=== PATIENT | male | born 1995 | race Caucasian/White ===

== ENCOUNTER 2021-02-21 03:58 | Outpatient (CLI) | payer OTHER, SELFPAY ==
[2021-02-24 10:44] LABS: Lyme Ab w Rflx to Lyme Confirm Negative (Negative)
[2021-02-25 18:48] LABS: Anaplasma phagocytophilum Negative (Negative); B. miyamotoi PCR Negative (Negative); Babesia divergens/MO-1 Negative (Negative); Babesia duncani Negative (Negative); Babesia microti Negative (Negative); Ehrlichia chaffeensis Negative (Negative); Ehrlichia ewingii/canis Negative (Negative); Ehrlichia muris eauclairensis Negative (Negative)
== END 2021-02-21 03:59 | disposition home or self-care (01) ==
LOC: LBO 03:58
PROVIDERS: Visit Provider Physician Assistant
DX: R21 Rash and other nonspecific skin eruption (principal)
CPT/HCPCS: 36415; 87798; 86618

== ENCOUNTER 2021-09-29 09:10 | Outpatient (CLI) | payer OTHER, SELFPAY ==
--- NOTE | 2021-09-29 09:00 | RT.EKG_ITS ---
APPROVED REPORT Exam: Resting ECG Reason for Exam: Chest discomfort Patient Location: O HR:93 bpm ECG Measurements Heart Rate 93 AXIS NM 154 P 60 QRSd 100 QRS 106 QT 342 T 15 QTc 426 Conclusion Sinus rhythm...normal P axis, V-rate 60- 99 Normal Electrocardiogram
== END 2021-09-29 09:11 | disposition home or self-care (01) ==
LOC: DI.CM 09:11
PROVIDERS: Visit Provider Nurse Practitioner Family
DX: R07.89 Other chest pain (principal)
CPT/HCPCS: 93010

== ENCOUNTER 2021-09-29 16:39 | Outpatient (REF) | payer OTHER, SELFPAY ==
[2021-10-01 12:43] LABS: COVID-19 RT-PCR UVMMC Result Negative (Negative)
== END 2021-09-29 16:40 | disposition home or self-care (01) ==
LOC: LBN 16:39
PROVIDERS: Visit Provider Nurse Practitioner Family
DX: Z20.822 Contact with and (suspected) exposure to COVID-19 (principal)
CPT/HCPCS: U0003

== ENCOUNTER 2024-02-29 15:49 | Outpatient (CLI) | payer OTHER, SELFPAY ==
[2024-02-29 16:08] LABS: Abs Immature Grans 0.09 10^3/uL (0.0-0.06); Absolute Basophil Count 0.06 10^3/uL (0.0-0.2); Absolute Eosinophil Count 0.09 10^3/uL (0.0-0.7); Absolute Lymphocyte Count 1.85 10^3/uL (1.2-3.4); Absolute Monocyte Count 1.03 10^3/uL (0.1-0.8); Basophils % 0.5 %; Eosinophils % 0.8 %; HCT 50.2 % (40.0-50.0); HGB 17.5 g/dL (13.5-17.5); Immature Grans % 0.8 %; Lymphocytes % 15.7 %; MCH 29.9 pg (27.0-33.0); MCHC 34.9 % (32.0-36.0); MCV 86 fL (80-95); MPV 9.5 fL (8.0-11.0); Monocytes % 8.7 %; Neutrophils % 73.5 %; Platelet Count 306 10^3/uL (130-400); RBC 5.85 10^6/uL (4.36-5.78); RDW 12.4 % (11.8-14.1); RDW-SD 38.6 fL
[2024-02-29 16:10] LABS: Absolute Neutrophil Count 8.67 10^3/uL (1.2-6.7)
[2024-02-29 16:49] LABS: ALT 16 U/L (16-63); AST 17 U/L (15-37); Albumin 4.5 g/dL (3.4-5.0); Alkaline Phosphatase 83 U/L (46-116); Anion Gap 9.6 mmol/L (3-11); BUN 13 mg/dL (7-18); Bilirubin, Total 0.73 mg/dL (0.2-1.0); CO2 26.4 mmol/L (21.0-32.0); CREATININE 1.3 mg/dL (0.70-1.30); Calcium 9.4 mg/dL (8.5-10.1); Chloride 105 mmol/L (98-107); Estimated GFR 75.32 (mL/min/1.73m2); Glucose 85 mg/dL (74-106); Lipase 56 U/L (16-77); Potassium 4.4 mmol/L (3.5-5.1); Sodium 141 mmol/L (136-145); Total Protein 7.8 g/dL (6.4-8.2)
== END 2024-02-29 15:50 | disposition home or self-care (01) ==
LOC: LBO 15:54
PROVIDERS: Visit Provider Physician Assistant
DX: R10.11 Right upper quadrant pain (principal); K76.0 Fatty (change of) liver, not elsewhere classified
CPT/HCPCS: 36415; 80053; 83690; 85025

== ENCOUNTER 2024-02-29 15:50 | Outpatient (REF) | payer OTHER, SELFPAY ==
[2024-02-29 16:18] LABS: Bilirubin Negative (Negative); Blood Negative (Negative); Clarity Clear (Clear); Glucose Negative (Negative); Ketones Negative (Negative); Leukocyte Esterase Negative (Negative); Nitrite Negative (Negative); Urobilinogen 0.2 mg/dL (Up to 0.2); pH 5.5 (5-8)
== END 2024-02-29 15:51 | disposition home or self-care (01) ==
LOC: NCHCN 15:50
PROVIDERS: Visit Provider Physician Assistant
DX: R10.11 Right upper quadrant pain (principal)
CPT/HCPCS: 81003